=== PATIENT | male | born 1940 | race Caucasian/White ===

== ENCOUNTER 2020-05-12 00:57 | Outpatient (CLI) | payer MEDICARE, OTHER, SELFPAY ==
--- NOTE | 2020-05-12 10:30 | DI.NM_ITS ---
APPROVED REPORT Exam: Exercise Treadmill Patient Location: Out-Patient Room/Bed: Stress Nurse: Shaila Riojas RN BMI: 25.29 Baseline Rhythm: Sinus Rhythm Indications: Patient testing today for further risk stratification. Patient reports midsternal chest pressure that ???comes and goes??? with both rest and activity and associated with occasional SOB and occasional dizziness. Medical History Medical History: Anemia, Anxiety, Depression, Chronic Ischemic Heart Disease, Generalized Atheroscler osis, CKD, CHANDNI. Cardiac Medications: Amlodipine, Aspirin, Atorvastatin, Fish Oil, Losartan, Metoprolol Succinate. Allergies: No known drug allergies Cardiac Risk Factors: FHX of CAD, HTN, Hyperlipidemia, Diabetes (non-insulin) Previous Cardiac Procedures: Cardiac Catheterization X2 Pretest Chest Pain Characteristics: No chest pain Exercise History: Physically active Physical Disabilities: None Lung Sounds: Clear to auscultation Heart Sounds: Regular Stress Test Details Test: Exercise stress testing was performed using a Nish protocol. Nuclear Acquisition: Rest Tc-99m/Stress Tc-99m 1 day Rest Isotope: Tc-99m Sestamibi. Dose: 11.0 Date: 05/12/2020 Injection Time: 1030 Stress Isotope: Tc-99m Sestamibi. Dose: 34.0 Date: 05/12/2020 Injection Time: 1240 HR Resting HR Supine: 70 bpm Max Heart Rate (APMHR): 142 bpm Resting HR Standin bpm Target HR (85% APMHR): 120 bpm Max HR Achieved: 143 bpm % of APMHR: 100 HR response to stress: Normal HR response to stress BP Resting BP Supine: 190/78 mmHg Resting BP Standin/76 mmHg Max BP: 190/78 mmHg BP response to stress: Abnormal hypotensive response to stress. ECG Resting ECG: Sinus Rhythm Ectopy: PVC's noted in recovery period. Stress ECG: Sinus Tachycardia ST Change: Horizontal ST depression Lead(s): I, II, V3, V4, V5, V6 Stage: [address] Deviation: 2 mm Arrhythmia: None Recovery ECG: Sinus Rhythm Clinical Reason for Termination: Fatigue Stress Symptoms: No symptoms reported per patient. Exercise duration: 7 min20 sec Highest Stage Reached: Stage 3: 3.4 mph at 14% grade. Exercise capacity: 9.12 METs Functional Capacity: Average Capacity Stress ECG Conclusion 1. Patient exercised for 7 minutes (9 METS). The patient had no symptoms suggestive of ischemia. 2. The patient developed [address] depressions in the lateral leads. 3. Exercise was stopped due to fatigue. Stress Test Summary STAGE Time (mins) Speed (mph) Grade (%) HR BP SYMPTOMS METS Supine 70 190/78 Standing 74 174/76 1 3 1.7 10 117 178/72 4.6 2 6 2.5 12 128 7 1 min recovery 124 158/60 3 min recovery 98 160/74 6 min recovery 94 166/70 9 min recovery 92 168/76 MPI Conclusion The patient's ejection fraction was 69%. There were no wall motion abnormalities. There is no evidence of ischemia on the imaging portion of the exam. This represents a normal SPECT stress test. Radiologist Interpretation Radiologist agrees with Schedule Clerk's Interpretation. Radiologist Interpretation by: Joey Kaufman MD Interpretation Date/Time: 05/12/2020 15:09:02
== END 2020-05-12 01:17 ==
PROVIDERS: PCP Internal Medicine Interventional Cardiology; Visit Provider Internal Medicine Interventional Cardiology
DX: R07.89 Other chest pain (principal); R06.02 Shortness of breath; I25.10 Atherosclerotic heart disease of native coronary artery without angina pectoris; I10 Essential (primary) hypertension; R42 Dizziness and giddiness; D64.9 Anemia, unspecified; Z82.49 Family history of ischemic heart disease and other diseases of the circulatory system
CPT/HCPCS: 78452; 93016; 93018; 93017